=== PATIENT | male | born 1995 | race Caucasian/White ===

== ENCOUNTER 2023-04-23 08:40 | Emergency (ER) | payer SELFPAY ==
[2023-04-23] MEDS ORDERED: Morphine 2 MG/ML SYRINGE IM ONE (09:10)
[2023-04-23] MEDS ORDERED: Ibuprofen 400 MG Tab ONE (09:30)
[2023-04-23] MEDS ORDERED: Acetaminophen/HYDROcodone 325-5 MG Tab ONE (09:30)
== END 2023-04-23 09:55 | disposition home or self-care (01) ==
LOC: LB.ED 08:40
DX: S82.252A Displaced comminuted fracture of shaft of left tibia, initial encounter for closed fracture (principal); Z87.891 Personal history of nicotine dependence; Z91.040 Latex allergy status; W01.0XXA Fall on same level from slipping, tripping and stumbling without subsequent striking against object, initial encounter
CPT/HCPCS: 73590-LT; 96372; 99283; A9270-GY; J2270

== ENCOUNTER 2023-04-27 20:03 | Emergency (ER) | payer SELFPAY ==
[2023-04-27] MEDS ORDERED: Acetaminophen/HYDROcodone 325-5 MG Tab ONE (21:00)
== END 2023-04-27 21:10 | disposition home or self-care (01) ==
LOC: LB.ED 20:03
DX: S82.142A Displaced bicondylar fracture of left tibia, initial encounter for closed fracture (principal); S82.832A Other fracture of upper and lower end of left fibula, initial encounter for closed fracture; Z87.891 Personal history of nicotine dependence; Z91.040 Latex allergy status; W17.4XXA Fall from dock, initial encounter
CPT/HCPCS: 99283; A9270-GY